=== PATIENT | female | born 1950 | race Caucasian/White ===

== ENCOUNTER 2018-03-31 11:14 | Inpatient (IN) ==
[2018-03-31] MEDS ORDERED: Naloxone 0.4 MG/ML INJ IVP PRN (14:46)
[2018-03-31] MEDS ORDERED: Dextrose Gel 15 GM/37.5 ML TUBE PO PRN ×2 (15:08)
[2018-03-31] MEDS ORDERED: D5% in Water 1,000 ML IVC PRN (15:08)
[2018-03-31] MEDS ORDERED: *HR* Dextrose 50 % in Water (Syg) 50 ML SYRINGE IVP PRN (15:08)
--- NOTE | 2018-03-31 15:42 | Internal Med History&Physical ---
<Vahid Jackson R - Last Filed: 03/31/18 15:36> Date of Encounter: 03/31/18 Time of Encounter: 14:00 Internal Medicine - H&P: HPI Chief complaint: Left knee pain Admitted From: Emergency Dept ([place] [facility]) Plans for Post Hospital Care: Home History of present illness: Ms. Ames is a 67 year old female with a history of CAD, diabetes, hypertension, depression, unprovoked PE on anticoagulation with Coumadin, COPD requiring oxygen at baseline, and chronic anemia. Patient presents from [place] [facility] for evaluation of left knee pain. Patient reports pain for last 5-7 days has briskly worsened, she has been unable to ambulate on her left lower extremity since yesterday. She denies any fever or chills at home denies nausea, vomiting, change in bowel, shortness of breath, or chest pain. Reports the pain was present one morning when she woke up, she denies known trauma or falls. Pain was 10 out of 10 prior to narcotic administration, at time of this evaluations pain is rated 7 out of 10. Initial evaluation did reveal a low- grade fever of 100.4. CBC did not reveal leukocytosis, and anemia present with hemoglobin of 8.1 appears to be patient's baseline. Serum creatinine elevated at 1.4, also appears to be patient's baseline renal function. Serum uric acid was elevated at 13. Left knee radiographs were obtained without acute abnormality or finding. Aspiration was attempted but unsuccessful. Orthopedic surgery was consultation and recommended holding antibiotics, administering colchicine, and transferred to [facility] for further evaluation and management. Past Med Surg Social Fam HX - Past Medical History Medical history: diabetes, hyperlipidemia, renal disease Additional medical history: home . Diabetic neuropathy Psychiatric history: depression - Past Surgical History Surgical History: cholecystectomy, hysterectomy - Social History Smoking Status: Never smoker Smokeless Tobacco Status: No Alcohol use: none Drug use: none Internal Medicine - H&P: Meds Citalopram Hydrobromide [Celexa] 40 mg PO DAILY 01/04/17 [History] Gabapentin [Neurontin] 800 mg PO DAILY 01/04/17 [History] Indapamide [Lozol] 2.5 mg PO DAILY 01/04/17 [History] Meclizine HCl [Verticalm] 25 mg PO AD 01/04/17 [History] Omeprazole [PriLOSEC] 40 mg PO DAILY 01/04/17 [History] Tizanidine HCl [Zanaflex] 4 mg PO TID 01/04/17 [History] Venlafaxine XR (24 HR) [Effexor Xr] 150 mg PO DAILY 01/04/17 [History] Warfarin [Coumadin] 5 mg PO 1800 01/04/17 [History] Cholecalciferol (D-3) [Vitamin D] 5,000 unit PO DAILY 01/19/17 [History] GlipiZIDE [Glipizide Xl] 5 mg PO DAILY 02/22/17 [History] Metoprolol Tartrate [Lopressor] 50 mg PO BID 02/22/17 [History] HYDROcodone/Acet 10/325 mg [[place] 10-325 mg] 1 tab PO BID PRN 03/16/17 [History] Cyanocobalamin (Vitamin B-12) [Vitamin B12] 1,000 mcg PO DAILY #30 tablet 07/05/17 [Rx] Allergy/AdvReac Type Severity Reaction Status Date / Time Penicillins Allergy Rash Verified 07/22/17 13:33 pregabalin [From Lyrica] Allergy Rash Verified 07/22/17 13:33 All Systems PM: A 10-system review of systems was performed and is negative for pertinent findings except as documented above in the HPI. - Constitutional Constitutional: no chills, no fever(s) - EENT Eyes: no change in vision, no diplopia Nose, mouth and throat: no epistaxis, no sore throat - Cardiovascular Cardiovascular ROS IM: no chest pain, no dyspnea, no palpitations - Gastrointestinal Gastrointestinal: no abdominal pain, no change in stool character - Musculoskeletal Musculoskeletal ROS IM: joint swelling, limited range of motion - Integumentary Integumentary IM: erythema (Left knee) - Neurological Neurological ROS: no dizziness, no focal weakness - Psychiatric Psychiatric: depression - Hematologic/Lymphatic Hematologic/Lymphatic: easy bleeding - Constitutional Vitals: Temp Pulse Resp BP Pulse Ox 100.4 F H 107 16 132/69 95 03/31/18 13:28 03/31/18 13:28 03/31/18 13:28 03/31/18 13:28 03/31/18 13:28 Exam: General: Patient is seated upright in bed, visibly uncomfortable, no acute distress, does not appear severely ill HEENT: Atraumatic, pupils PERRLA with EOMI, anicteric sclera, moist mucous membranes Neck: Soft without lymphadenopathy Cardio: Regular rate and rhythm, 2/6 systolic murmur present, previously known to patient Respiratory: Clear to auscultation bilaterally, no crackles or wheezes Abdomen: Obese, soft, nontender, nondistended, no guarding or rigidity Extremities: Left knee effusion with associated erythema and tenderness, mild lower extremity edema Neuro: Alert and oriented to person, place, time, no focal deficits Psych: Blunted affect - Assessment and plan (1) Knee effusion, left Current Visit: Yes Status: Acute Assessment and plan: Left knee effusion with associated erythema and significant tenderness Low-grade fever of 100.4, no leukocytosis Uric acid elevated at 13 INR elevated at 2.4 Arthrocentesis attempted and failed at outside facility Differential includes gout, pseudoarthritis, heme-arthosis, septic arthritis. Plan: Repeat CBC, INR Blood cultures 2 Orthopedic surgery consult to Dr. Mcnulty for possible arthrocentesis with fluid evaluation for Gram stain, culture, microscopy for crystals Pain management Methylprednisolone 20 mg IV twice a day, decrease pending clinical response Feel that septic arthritis is less likely and will hold antibiotic therapy currently pending results of the above. Will monitor closely and initiate abx if patient course changes. (2) Diabetes Current Visit: Yes Status: Acute Assessment and plan: Appears to be well controlled, most recent hemoglobin A1c of 5.6, Hold home glipizide Accu-Cheks and sliding scale insulin, adjust regimen as indicated Qualifiers: Diabetes mellitus type: type 2 Diabetes mellitus jail insulin use: without termite inspector use Diabetes mellitus complication status: with kidney complications Diabetes mellitus complication detail: with chronic kidney disease Chronic kidney disease stage: unspecified stage Qualified Code(s): E11.22 - Type 2 diabetes mellitus with diabetic chronic kidney disease (3) Anemia Current Visit: Yes Status: Acute Assessment and plan: Chronic anemia, likely multifactorial in nature secondary to chronic kidney disease, iron deficiency, and anticoagulation Hemoglobin today 8.1, appears to be at baseline We will follow daily labs Qualifiers: Anemia type: unspecified type Qualified Code(s): D64.9 - Anemia, unspecified (4) History of pulmonary embolus (PE) Current Visit: Yes Status: Acute Assessment and plan: On warfarin for prior unprovoked pulmonary embolus Will hold warfarin for arthrocentesis and resume following procedure (5) Depression Current Visit: Yes Status: Acute Assessment and plan: Continue home medications Qualifiers: Depression Type: major depressive disorder Major depression recurrence: unspecified whether recurrent Active/Remission status: in full remission Qualified Code(s): 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, single episode, in full remission (6) COPD (chronic obstructive pulmonary disease) Current Visit: Yes Status: Acute Assessment and plan: Per patient requires oxygen at baseline, currently on 2 L Supplemental oxygen as necessary to maintain saturation Qualifiers: COPD type: unspecified COPD Qualified Code(s): J44.9 - Chronic obstructive pulmonary disease, unspecified - Time Spent With Patient Total time spent is greater than 50% in coordination of care (as documented) at patient's floor/unit and/or counseling patient: <Maryjane Koroma - Last Filed: 03/31/18 16:49> Date of Encounter: 03/31/18 Internal Medicine - H&P: HPI History of present illness: Ms. Ames is a 67 year old female All Systems PM: A 10-system review of systems was performed and is negative for pertinent findings except as documented above in the HPI. - Constitutional Vitals: Temp Pulse Resp BP Pulse Ox 100.4 F H 107 16 132/69 95 03/31/18 13:28 03/31/18 13:28 03/31/18 13:28 03/31/18 13:28 03/31/18 13:28 Internal Med - H&P Results - Labs CBC & Chem 7: 03/31/18 15:36 Labs: Short CBC 03/31/18 Range/Units 15:36 WBC 4.9 (4.3-11.1) K/mcL Hgb 7.5 L (11.5-15.4) g/dL Hct 24.6 L (35.3-44.9) % Plt Count 135 L (140-400) K/mcL Neutrophils # 4.3 (1.6-8.9) K/mcL - Assessment and plan (1) Knee effusion, left Current Visit: Yes Status: Acute (2) Diabetes Current Visit: Yes Status: Acute Qualifiers: Diabetes mellitus type: type 2 Diabetes mellitus jail insulin use: without jail use Diabetes mellitus complication status: with kidney complications Diabetes mellitus complication detail: with chronic kidney disease Chronic kidney disease stage: unspecified stage Qualified Code(s): E11.22 - Type 2 diabetes mellitus with diabetic chronic kidney disease (3) Anemia Current Visit: Yes Status: Acute Qualifiers: Anemia type: unspecified type Qualified Code(s): D64.9 - Anemia, unspecified (4) History of pulmonary embolus (PE) Current Visit: Yes Status: Acute (5) Depression Current Visit: Yes Status: Acute Qualifiers: Depression Type: major depressive disorder Major depression recurrence: unspecified whether recurrent Active/Remission status: in full remission Qualified Code(s): 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, single episode, in full remission (6) COPD (chronic obstructive pulmonary disease) Current Visit: Yes Status: Acute Qualifiers: COPD type: unspecified COPD Qualified Code(s): J44.9 - Chronic obstructive pulmonary disease, unspecified - Time Spent With Patient Total time spent is greater than 50% in coordination of care (as documented) at patient's floor/unit and/or counseling patient: - Attending Attestation I examined this patient and my medical decision-making was reviewed with the Resident Physician Dr Jackson. I agree with the documented findings, dispo sition and treatment plan as described except to the extent set forth below. Ms Ames has pmhx of multifactorial anemia 2/2 MARYJANE from [place] (internal hemorrhoids) and CKD, Stage III CKD, fatty liver disease, copd on o2 nc at home, unprovoked PE on warfarin and follows with heme. She transferred from [place] for Left knee pain and joint effusion for otho consultation awake, cont left knee pain with any touching of joint or movement of joint. + left calf pain. denies fevers, chills, n/v, recent travel, exposure to wooded areas/tics, recent viral illness or prior infectious diseases such as tb. No trauma or injury. Similar episode same knee in past without dx. gen- alert, awake,appears stated age, obese eyes- pupils equal round , no conjunctival pallor cv- reg rate and rhythm, normal s1,s2, no murmurs appreciated, no pitting edema le lungs- ctabl, no wheezing, rhonchi or crackles, norm resp effort on home o2 nc msk- left knee effusion, faint erythema, pain to palpation joint and pt unable to move joint through rom given pain, no ecchymosis or rash, left calf size appears larger than left but hard to fully eval given her positioning and refusal to move knee neuro- AAOx3 Left knee pain and joint effusion Differential includes gout, dvt, given temp 100.4 cannot rule out septic joint though this is lower of diff at this time given no leukocytosis or systemic symptoms -ortho consulted when at [place] [facility] for colchicine, hold abx and transfer f or tap ortho to tap knee for fluid analysis -hold on steroids given temp here, no abx at this time but if clinical picture changes prior to fluid analysis results will consider initiating, , given co lchicine (got 0.6 mg at osh), renal dose as needed, check gonorrheal urine study -LLE doppler Chronic anemia- appears at baseline 7-8s on recent checks- monitor here, s/p atttempted tap at o[facility], monitor for hemarthrosis hx unprovoked pe- on ac, therapeutic, LLE US as above further diagnoses and plan as noted by resident
[2018-03-31 15:50] LABS: Eosinophils % 0.2 %; Hematocrit 24.6 % (35.3-44.9); Hemoglobin 7.5 g/dL (11.5-15.4); Immature Granulocytes % 0.2 % (0-4); Lymphocytes # 0.3 K/mcL (0.6-4.6); Lymphocytes % 6.7 %; Mean Corpuscular HGB Conc 30.5 g/dL (31.6-35.5); Mean Corpuscular Hemoglobin 29.1 pg (28.0-33.3); Mean Platelet Volume 9.8 fL (9.4-12.4); Monocytes # 0.3 K/mcL (0.0-1.3); Monocytes % 6.1 %; Neutrophils # 4.3 K/mcL (1.6-8.9); Platelet Count 135 K/mcL (140-400); Red Blood Count 2.58 M/mcL (3.82-4.97); Red Cell Distribution Width 16.1 % (11.5-14.5); Segmented Neutrophils % 86.8 %
[2018-03-31] MEDS ORDERED: Ipratropium/Albuterol Neb 3 ML IH PRN (15:56)
[2018-03-31 15:57] LABS: INR 2.5; Prothrombin Time 28.4 Seconds (9.4-12.1)
[2018-03-31 15:59] LABS: Mean Corpuscular Volume 95.3 fL (83.0-100.0)
[2018-03-31] MEDS: *HR* OxyCODONE/APAP 5/325 TABLET PO PRN ×2 (16:10→23:50)
[2018-03-31] MEDS: Insulin LISPRO 300 UNITS/3 ML VIAL SQ SCH ×2 (16:12→21:04)
[2018-03-31] MEDS ORDERED: Colchicine 0.6 MG TABLET PO ONE (16:36)
[2018-03-31] MEDS ORDERED: Gabapentin 400 MG CAPSULE PO SCH (17:00)
[2018-03-31] MEDS: *HR* FentaNYL (PF) 100 MCG/2 ML VIAL IVP PRN ×3 (17:03→21:30)
[2018-03-31] MEDS ORDERED: Lidocaine -MPF 1% 5 ML AMPUL ONE (17:43)
[2018-03-31] MEDS ORDERED: MethylPREDNISolone 40 MG/ML VIAL IVP SCH (18:00)
--- NOTE | 2018-03-31 19:00 | Orthopedic Consult Note ---
Date of Encounter: 03/31/18 Time of Encounter: 18:58 History of Present Illness Chief complaint: Left knee pain and swelling HPI: Ms. Ames is a 67 year old female who developed acute onset of left knee pain and swelling a proximally 5 days ago without any antecedent trauma. Patient states that the knee has become extremely painful even to touch. Should not denies any recent trauma. The patient has had previous episodes of pain in the knee in the past. Patient states that she does have a history of pulmonary embolus with a lug clot in one of her lower extremities, she is on chronic Coumadin anticoagulation. Patient is unable to utilize any anti-inflammatory medications to help with the pain. I have reviewed the patient's completed history and physical data as well as see medical record. Vital signs are stable. The patient does have a recorded temperature of 100.4 degrees. Pertinent orthopedic examination reveals a mild to moderate effusion in the left knee. There is distention of the superficial veins in the left leg both above and below the knee. There is no significant erythema or cellulitic component to the knee. No evidence of prepatellar involvement. Range of motion and exam is extremely limited due to pain. I did review the x-rays obtained in July 2017. These are nonweightbearing x- rays. These do reveal the presence of arthritis but this does not appear to be severe. Reportedly the x-rays taken today are unremarkable. Laboratory data includes a normal WBC count. Hemoglobin is chronically low at 7.5. Platelet count is low at 135. Pro time is 28.4 with an INR of 2.5. Patient reportedly has been elevated serum uric acid level. Impression: Left knee effusion, suspected gout Recommendation: After extensive discussion with the patient, informed consent was obtained to proceed with an arthrocentesis of the knee. Utilizing approximately 3 mL's of 1% lidocaine and sterile technique a superolateral approach was used to obtain approximately 30 mL of bloodstained, thick synovial fluid. After the fluid sat for a short period of time precipitation of material was noted. This is consistent with uric acid orders pyrophosphate crystals. Compression dressing was applied. The patient tolerated the procedure without difficulty. The arthrocentesis fluid was sent for culture, cell count, crystal analysis as well as cytology. Discussed with the patient that should she have any pain over the next 24-48 hours and ice would be appropriate treatment. We will follow-up and make further recommendations pending the results of this arthrocentesis. Thank you very much for allowing me to see care for Mrs. Ames. Sincerely, Surya Mcnulty,DO Past Med Surg Social Fam HX - Past Medical History Medical history: diabetes, hyperlipidemia, renal disease Additional medical history: home . Diabetic neuropathy Psychiatric history: depression - Past Surgical History Surgical History: cholecystectomy, hysterectomy - Social History Smoking Status: Never smoker Smokeless Tobacco Status: No Alcohol use: none Drug use: none Medications and Allergies Citalopram Hydrobromide [Celexa] 40 mg PO DAILY 01/04/17 [History] Gabapentin [Neurontin] 800 mg PO DAILY 01/04/17 [History] Indapamide [Lozol] 2.5 mg PO DAILY 01/04/17 [History] Meclizine HCl [Verticalm] 25 mg PO AD 01/04/17 [History] Omeprazole [PriLOSEC] 40 mg PO DAILY 01/04/17 [History] Tizanidine HCl [Zanaflex] 4 mg PO TID 01/04/17 [History] Venlafaxine XR (24 HR) [Effexor Xr] 150 mg PO DAILY 01/04/17 [History] Warfarin [Coumadin] 5 mg PO 1800 01/04/17 [History] Cholecalciferol (D-3) [Vitamin D] 5,000 unit PO DAILY 01/19/17 [History] GlipiZIDE [Glipizide Xl] 5 mg PO DAILY 02/22/17 [History] Metoprolol Tartrate [Lopressor] 50 mg PO BID 02/22/17 [History] HYDROcodone/Acet 10/325 mg [[place] 10-325 mg] 1 tab PO BID PRN 03/16/17 [History] Cyanocobalamin (Vitamin B-12) [Vitamin B12] 1,000 mcg PO DAILY #30 tablet 07/05/17 [Rx] Allergy/AdvReac Type Severity Reaction Status Date / Time Penicillins Allergy Rash Verified 07/22/17 13:33 pregabalin [From Lyrica] Allergy Rash Verified 07/22/17 13:33 All Systems Reviewed: The remainder of the systems were reviewed and are negative Physical Exam - Constitutional Vitals: Temp Pulse Resp BP Pulse Ox 100.4 F H 107 16 132/69 95 03/31/18 13:28 03/31/18 13:28 03/31/18 13:28 03/31/18 13:28 03/31/18 13:28 Results - Labs Result Diagrams: 03/31/18 15:36 Labs: Abnormal lab results RBC 2.58 M/mcL (3.82-4.97) L 03/31/18 15:36 Hgb 7.5 g/dL (11.5-15.4) L 03/31/18 15:36 Hct 24.6 % (35.3-44.9) L 03/31/18 15:36 MCHC 30.5 g/dL (31.6-35.5) L 03/31/18 15:36 RDW 16.1 % (11.5-14.5) H 03/31/18 15:36 Plt Count 135 K/mcL (140-400) L 03/31/18 15:36 Lymphocytes # 0.3 K/mcL (0.6-4.6) L 03/31/18 15:36 PT 28.4 Seconds (9.4-12.1) H 03/31/18 15:36 H & H 03/31/18 Range/Units 15:36 Hgb 7.5 L (11.5-15.4) g/dL Hct 24.6 L (35.3-44.9) % All other labs normal. - Diagnostic results Knee x-ray: report reviewed, image reviewed Consult Discharge Plan - Plan Referrals: Chintan Cooper MD [Primary Care Provider] -
[2018-03-31 19:53] LABS: Source,Synovial Fluid LEFT KNEE ASPIRATE
[2018-03-31] MEDS ORDERED: tiZANidine 4 MG TABLET PO ONE (20:17)
[2018-03-31 20:24] LABS: Appearance,Synovial Fluid Cloudy (Clear-Hazy); Color,Synovial Fluid Red (Straw)
[2018-03-31] MEDS: Gabapentin 400 MG CAPSULE PO SCH (20:58)
[2018-04-01] MEDS: *HR* FentaNYL (PF) 100 MCG/2 ML VIAL IVP PRN ×7 (00:58→09:57)
[2018-04-01 05:00] LABS: Basophils % 0.3 %; Eosinophils % 0.3 %; Hematocrit 23.6 % (35.3-44.9); Hemoglobin 7.1 g/dL (11.5-15.4); Immature Granulocytes % 0.5 % (0-4); Lymphocytes # 0.4 K/mcL (0.6-4.6); Lymphocytes % 10.5 %; Mean Corpuscular HGB Conc 30.1 g/dL (31.6-35.5); Mean Corpuscular Hemoglobin 29.1 pg (28.0-33.3); Mean Corpuscular Volume 96.7 fL (83.0-100.0); Monocytes # 0.3 K/mcL (0.0-1.3); Monocytes % 6.6 %; Neutrophils # 3.1 K/mcL (1.6-8.9); Platelet Count 127 K/mcL (140-400); Red Blood Count 2.44 M/mcL (3.82-4.97); Red Cell Distribution Width 15.9 % (11.5-14.5); Segmented Neutrophils % 81.8 %
[2018-04-01 05:06] LABS: INR 2.5; Prothrombin Time 27.9 Seconds (9.4-12.1)
[2018-04-01 05:18] LABS: Calcium 8.9 mg/dL (8.6-10.3); Potassium 3.7 mEq/L (3.5-5.1)
[2018-04-01] MEDS: Insulin LISPRO 300 UNITS/3 ML VIAL SQ SCH ×4 (07:27→21:28)
[2018-04-01] MEDS: Venlafaxine XR (24 HR) 150 MG CAP.ER.24H PO SCH (07:29)
[2018-04-01] MEDS: Gabapentin 400 MG CAPSULE PO SCH ×3 (07:30→19:28)
--- NOTE | 2018-04-01 08:11 | Internal Med Progress Note ---
<Maryjane Koroma - Last Filed: 04/01/18 13:40> Hospitalist Progress Note - Encounter Date of Encounter: 04/01/18 - Exam Vitals: Temp Pulse Resp BP Pulse Ox 99.3 F 68 15 109/51 99 04/01/18 10:55 04/01/18 10:55 04/01/18 10:55 04/01/18 10:55 04/01/18 10:55 - Assessment and Plan (1) Knee effusion, left Current Visit: Yes Status: Acute (2) Diabetes Current Visit: Yes Status: Acute (3) Anemia Current Visit: Yes Status: Acute (4) History of pulmonary embolus (PE) Current Visit: Yes Status: Acute (5) Depression Current Visit: Yes Status: Acute (6) COPD (chronic obstructive pulmonary disease) Current Visit: Yes Status: Acute - Time Spent with Patient Total time spent is greater than 50% in coordination of care (as documented) at patient's floor/unit and/or counseling patient: Internal Medicine: Result - Labs CBC & Chem 7: 04/01/18 04:29 04/01/18 04:29 Labs: Short CBC 03/31/18 04/01/18 Range/Units 15:36 04:29 WBC 4.9 3.8 L (4.3-11.1) K/mcL Hgb 7.5 L 7.1 L (11.5-15.4) g/dL Hct 24.6 L 23.6 L (35.3-44.9) % Plt Count 135 L 127 L (140-400) K/mcL Neutrophils # 4.3 3.1 (1.6-8.9) K/mcL BMP 04/01/18 04:29 Sodium 138 Potassium 3.7 Chloride 98 Carbon Dioxide 34 H BUN 26 H Creatinine 1.56 H Glucose 152 H Calcium 8.9 - ABG Interpretation ABG results: PT/INR, D-dimer PT 27.9 Seconds (9.4-12.1) H 04/01/18 04:29 Consult Discharge Plan - Plan Referrals: Chintan Cooper MD [Primary Care Provider] - - Attending Attestation I examined this patient and my medical decision-making was reviewed with the Resident Physician Dr Jolly. I agree with the documented findings, disposition and treatment plan as described except to the extent set forth below. Ms Ames has pmhx of multifactorial anemia 2/2 MARYJANE from gib (internal hemorrhoids) and CKD, Stage III CKD, fatty liver disease, copd on o2 nc at home, unprovoked PE on warfarin and follows with heme. She transferred from [place] for Left knee pain and joint effusion for otho consultation awake, cont left knee pain unchanged, though she is resting comofrtably with pain meds administered at this time. denies fevers, chills, nasuea or emesis. rom remains greatly impaired in that joint. fluid analysis and ortho note discussed with her. agreeable to pt ot assessment gen- alert, awake,appears stated age, obese eyes- pupils equal round , no conjunctival pallor cv- reg rate and rhythm, normal s1,s2, no murmurs appreciated, no pitting edema le lungs- ctabl, no wheezing, rhonchi or crackles, norm resp effort on home o2 nc msk- left knee effusion, pain to palpation joint and pt unable to move joint through rom given pain, n neuro- AAOx3 Left knee pain and joint effusion suspected gout, dvt ruled out, cannot rule out septic joint given fluid analysis not complete results though this is lower of diff at this time given no leukocytosis or systemic symptoms and no fever -ortho suspects gout, will await fu or fluid analysis as not fully able to be run -s/p cochincine -prn pain control -LLE doppler prelim no clot fu ortho recs change to po pain meds pt/ot Chronic anemia- appears at baseline 7-8s monitor as needed hx unprovoked pe- on ac, therapeutic, LLE US as above further diagnoses and plan as noted by resident <Sim Jolly - Last Filed: 04/01/18 14:46> Hospitalist Progress Note - Encounter Date of Encounter: 04/01/18 Time of Encounter: 08:11 - Subjective Interval History: Ms. Ames states she is still having quite a bit of left knee pain. I informed her that we were giving her an appropriate amount of pain medication without being unsafe, she stated she understood and agreed. I informed her that the results of her knee aspiration or pulmonary and that the orthopedics team would be better equipped to interpret those results and inform her of the plan of care. However no that in the meantime we would manage her medically. I informed her that as of this morning there were no signs of systemic infection and that her labs and vitals were stable. She pleasantly accepted this explanation - Exam Vitals: Temp Pulse Resp BP Pulse Ox 99.5 F 82 15 110/58 97 04/01/18 07:07 04/01/18 07:07 04/01/18 07:07 04/01/18 07:07 04/01/18 07:07 Exam: General: Patient is seated upright in bed, visibly uncomfortable, no acute distress, does not appear severely ill HEENT: Atraumatic, pupils PERRLA with EOMI, anicteric sclera, moist mucous membranes Neck: Soft without lymphadenopathy Cardio: Regular rate and rhythm, 2/6 systolic murmur present, previously known to patient Respiratory: Clear to auscultation bilaterally, no crackles or wheezes Abdomen: Obese, soft, nontender, nondistended, no guarding or rigidity Extremities: Left knee in bre wrap, no swelling or erythema noted above or below, sensation diminished in bilateral distal lower extremities secondary to neuropathy, motor and pulses intact in both lower extremities Neuro: Alert and oriented to person, place, time, no focal deficits Psych: Blunted affect - Assessment and Plan (1) Knee effusion, left Current Visit: Yes Status: Acute Assessment and Plan: Patient presented for left knee effusion with associated erythema and significant tenderness Labs and vitals on admission significant for low-grade fever, elevated uric acid White blood cell count within normal limits, no other criteria for sepsis Arthrocentesis attempted and failed at outside facility Differential includes gout, pseudoarthritis, heme-arthosis, septic arthritis. White count remains within normal limits, blood cultures pending Orthopedic surgery performed arthrocentesis yesterday, results pending interpretation Plan: Continue pain control Continue to monitor labs and vitals for signs of systemic infection Rest of plan pending orthopedic recommendations (2) Diabetes Current Visit: Yes Status: Chronic Assessment and Plan: Appears to be well controlled, most recent hemoglobin A1c of 5.6, Hold home glipizide Accu-Cheks and sliding scale insulin, adjust regimen as indicated Glucose stable this morning at 152 (3) Anemia Current Visit: Yes Status: Chronic Assessment and Plan: Chronic anemia, likely multifactorial in nature secondary to chronic kidney disease, iron deficiency, and anticoagulation Hemoglobin yesterday 7.5, 7.1 today, appears to be at approximate baseline We will monitor CBC daily and watch for any signs of bleeding (4) History of pulmonary embolus (PE) Current Visit: Yes Status: Chronic Assessment and Plan: On warfarin for prior unprovoked pulmonary embolus Warfarin held for arthrocentesis, resume today (5) Depression Current Visit: No Status: Chronic Assessment and Plan: Continue home medications (6) COPD (chronic obstructive pulmonary disease) Current Visit: No Status: Chronic Assessment and Plan: Per patient requires oxygen at baseline, currently on 2 L Supplemental oxygen as necessary to maintain saturation DuoNeb's every 6 hours as needed DVT Prophylaxis: Patient on warfarin - Time Spent with Patient Total time spent is greater than 50% in coordination of care (as documented) at patient's floor/unit and/or counseling patient: Internal Medicine: Result - Labs CBC & Chem 7: 04/01/18 04:29 04/01/18 04:29 Labs: Short CBC 03/31/18 04/01/18 Range/Units 15:36 04:29 WBC 4.9 3.8 L (4.3-11.1) K/mcL Hgb 7.5 L 7.1 L (11.5-15.4) g/dL Hct 24.6 L 23.6 L (35.3-44.9) % Plt Count 135 L 127 L (140-400) K/mcL Neutrophils # 4.3 3.1 (1.6-8.9) K/mcL BMP 04/01/18 04:29 Sodium 138 Potassium 3.7 Chloride 98 Carbon Dioxide 34 H BUN 26 H Creatinine 1.56 H Glucose 152 H Calcium 8.9 - ABG Interpretation ABG results: PT/INR, D-dimer PT 27.9 Seconds (9.4-12.1) H 04/01/18 04:29 <Maryjane Koroma - Last Filed: 04/01/18 13:40> (2) Diabetes Qualifiers: Diabetes mellitus type: type 2 Diabetes mellitus terminal worker insulin use: without terminal worker use Diabetes mellitus complication status: with kidney complications Diabetes mellitus complication detail: with chronic kidney disease Chronic kidney disease stage: unspecified stage Qualified Code(s): E11.22 - Type 2 diabetes mellitus with diabetic chronic kidney disease (3) Anemia Qualifiers: Anemia type: unspecified type Qualified Code(s): D64.9 - Anemia, unspecified (5) Depression Qualifiers: Depression Type: major depressive disorder Major depression recurrence: unspecified whether recurrent Active/Remission status: in full remission Qualified Code(s): 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, single episode, in full remission (6) COPD (chronic obstructive pulmonary disease) Qualifiers: COPD type: unspecified COPD Qualified Code(s): J44.9 - Chronic obstructive pulmonary disease, unspecified <Sim Jolly - Last Filed: 04/01/18 14:46> (2) Diabetes Qualifiers: Diabetes mellitus type: type 2 Diabetes mellitus correction insulin use: without correction use Diabetes mellitus complication status: with kidney complications Diabetes mellitus complication detail: with chronic kidney disease Chronic kidney disease stage: unspecified stage Qualified Code(s): E11.22 - Type 2 diabetes mellitus with diabetic chronic kidney disease (3) Anemia Qualifiers: Anemia type: unspecified type Qualified Code(s): D64.9 - Anemia, unspecified (5) Depression Qualifiers: Depression Type: major depressive disorder Major depression recurrence: unspecified whether recurrent Active/Remission status: in full remission Qualified Code(s): 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, single episode, in full remission (6) COPD (chronic obstructive pulmonary disease) Qualifiers: COPD type: unspecified COPD Qualified Code(s): J44.9 - Chronic obstructive pulmonary disease, unspecified
[2018-04-01] MEDS: *HR* OxyCODONE/APAP 5/325 TABLET PO PRN ×2 (11:35→17:24)
[2018-04-01] MEDS ORDERED: Docusate Oral Soln 100 MG/10 ML UDC PO SCH (12:30)
[2018-04-01] MEDS: *HR* HYDROcodone/Acet 10/325 mg TABLET PO PRN (14:38)
[2018-04-01] MEDS: *HR* Warfarin 5 MG TABLET PO SCH (17:24)
[2018-04-01] MEDS: Acetaminophen 325 MG TABLET PO PRN (19:28)
[2018-04-02] MEDS: *HR* OxyCODONE/APAP 5/325 TABLET PO PRN ×3 (02:31→14:14)
[2018-04-02] MEDS ORDERED: tiZANidine 4 MG TABLET PO ONE (02:39)
[2018-04-02 03:40] LABS: Eosinophils % 1.2 %; Hematocrit 24.9 % (35.3-44.9); Hemoglobin 7.4 g/dL (11.5-15.4); Immature Granulocytes % 0.3 % (0-4); Lymphocytes # 0.3 K/mcL (0.6-4.6); Lymphocytes % 9.1 %; Mean Corpuscular HGB Conc 29.7 g/dL (31.6-35.5); Mean Corpuscular Hemoglobin 28.9 pg (28.0-33.3); Mean Corpuscular Volume 97.3 fL (83.0-100.0); Mean Platelet Volume 9.7 fL (9.4-12.4); Monocytes # 0.2 K/mcL (0.0-1.3); Monocytes % 5.3 %; Neutrophils # 2.9 K/mcL (1.6-8.9); Platelet Count 127 K/mcL (140-400); Red Blood Count 2.56 M/mcL (3.82-4.97); Red Cell Distribution Width 15.8 % (11.5-14.5); Segmented Neutrophils % 84.1 %
[2018-04-02 03:45] LABS: INR 1.9; Prothrombin Time 21.3 Seconds (9.4-12.1)
[2018-04-02] MEDS: *HR* HYDROcodone/Acet 10/325 mg TABLET PO PRN ×2 (05:47→11:40)
[2018-04-02] MEDS: Venlafaxine XR (24 HR) 150 MG CAP.ER.24H PO SCH (07:30)
[2018-04-02] MEDS: Acetaminophen 325 MG TABLET PO PRN (07:30)
[2018-04-02] MEDS: Gabapentin 400 MG CAPSULE PO SCH ×3 (07:31→21:02)
[2018-04-02] MEDS: Insulin LISPRO 300 UNITS/3 ML VIAL SQ SCH ×4 (07:52→21:02)
--- NOTE | 2018-04-02 09:48 | Internal Med Progress Note ---
<Tunde Gardner - Last Filed: 04/02/18 09:44> Hospitalist Progress Note - Encounter Date of Encounter: 04/02/18 Time of Encounter: 09:54 - Subjective Interval History: No acute events overnight. Patient reports she continues to have pain in her left knee. She is unable to properly extend or flex her left knee. She is t olerating her diet and denies chest pain, shortness of breath, abdominal pain. She reports that if physical therapy and occupational therapy recommended a splint for rehabilitation and she would be okay with that. - Exam Vitals: Temp Pulse Resp BP Pulse Ox 98.8 F 67 18 95/61 97 04/02/18 04:38 04/02/18 04:38 04/02/18 04:38 04/02/18 04:38 04/02/18 08:37 Exam: General: pleasant, without distress Cardiovascualr: Regular rate and rhythm with no murmur, absent gallops or rubs, absent pedal edema, radial pulses 2 out of 4 Lungs: Clear to auscultation bilaterally, not in respiratory distress Abdomen: Soft nontender, nondistended positive bowel sounds, absent hepatomegaly Skin: warm and dry, absent rash, absent open wounds and nodules MSK: absent clubbing, cyanosis, left knee swollen, warm to touch. Patient unable to extend or flex secondary to pain. And there is tenderness with deep palpation of the patellar circumference. Neuro: Cranial nerves II through XII intact, UE and LE sensation equal bilaterally Psych: good insight and judgment - Assessment and Plan (1) Knee effusion, left Current Visit: Yes Status: Acute Assessment and Plan: Knee aspiration is negative for infection as well as no crystals were seen Spoke with orthopedic surgery who would like to do a steroid injection today and patient may follow-up in office if her knee pain and swelling does not improve. Patient has been afebrile, and blood cultures have been negative so far There were no bacteria observed in synovial fluid aspiration. Plan: PT/OT, continue pain control. Discharge planning. (2) Diabetes Current Visit: Yes Status: Chronic Assessment and Plan: Appears to be well controlled, most recent hemoglobin A1c of 5.6, Hold home glipizide Accu-Cheks and sliding scale insulin, adjust regimen as indicated (3) Anemia Current Visit: Yes Status: Chronic Assessment and Plan: Chronic anemia, likely multifactorial in nature secondary to chronic kidney disease, iron deficiency, and anticoagulation Hemoglobin stable We will monitor CBC daily and watch for any signs of bleeding (4) History of pulmonary embolus (PE) Current Visit: Yes Status: Chronic Assessment and Plan: On warfarin for prior unprovoked pulmonary embolus Continue warfarin (5) Depression Current Visit: Yes Status: Chronic Assessment and Plan: Continue home medications (6) COPD (chronic obstructive pulmonary disease) Current Visit: Yes Status: Chronic Assessment and Plan: Per patient requires oxygen at baseline, currently on 2 L Supplemental oxygen as necessary to maintain saturation DuoNeb's every 6 hours as needed (7) GERD (gastroesophageal reflux disease) Current Visit: Yes Status: Chronic Assessment and Plan: Controlled Continue omeprazole (8) History of anxiety Current Visit: Yes Status: Chronic Assessment and Plan: Controlled Continue venlafaxine - Time Spent with Patient Total time spent is greater than 50% in coordination of care (as documented) at patient's floor/unit and/or counseling patient: Internal Medicine: Result - Labs CBC & Chem 7: 04/02/18 03:13 04/01/18 04:29 Labs: Short CBC 04/02/18 Range/Units 03:13 WBC 3.4 L (4.3-11.1) K/mcL Hgb 7.4 L (11.5-15.4) g/dL Hct 24.9 L (35.3-44.9) % Plt Count 127 L (140-400) K/mcL Neutrophils # 2.9 (1.6-8.9) K/mcL - ABG Interpretation ABG results: PT/INR, D-dimer PT 21.3 Seconds (9.4-12.1) H 04/02/18 03:13 Consult Discharge Plan - Plan Referrals: Chintan Cooper MD [Primary Care Provider] - <Maryjane Koroma - Last Filed: 04/02/18 14:55> Hospitalist Progress Note - Encounter Date of Encounter: 04/02/18 - Exam Vitals: Temp Pulse Resp BP Pulse Ox 98.3 F 65 16 103/61 96 04/02/18 10:57 04/02/18 10:57 04/02/18 10:57 04/02/18 10:57 04/02/18 10:57 - Assessment and Plan (1) Knee effusion, left Current Visit: Yes Status: Acute (2) Diabetes Current Visit: Yes Status: Chronic (3) Anemia Current Visit: Yes Status: Chronic (4) History of pulmonary embolus (PE) Current Visit: Yes Status: Chronic (5) Depression Current Visit: Yes Status: Chronic (6) COPD (chronic obstructive pulmonary disease) Current Visit: Yes Status: Chronic (7) GERD (gastroesophageal reflux disease) Current Visit: Yes Status: Chronic (8) History of anxiety Current Visit: Yes Status: Chronic - Time Spent with Patient Total time spent is greater than 50% in coordination of care (as documented) at patient's floor/unit and/or counseling patient: Internal Medicine: Result - Labs CBC & Chem 7: 04/02/18 03:13 04/01/18 04:29 Labs: Short CBC 04/02/18 Range/Units 03:13 WBC 3.4 L (4.3-11.1) K/mcL Hgb 7.4 L (11.5-15.4) g/dL Hct 24.9 L (35.3-44.9) % Plt Count 127 L (140-400) K/mcL Neutrophils # 2.9 (1.6-8.9) K/mcL - ABG Interpretation ABG results: PT/INR, D-dimer PT 21.3 Seconds (9.4-12.1) H 04/02/18 03:13 - Attending Attestation I examined this patient and my medical decision-making was reviewed with the Resident Physician Dr Gardner. I agree with the documented findings, disposition and treatment plan as described except to the extent set forth below. Ms Ames has pmhx of multifactorial anemia 2/2 MARYJANE from gib (internal hemorrhoids) and CKD, Stage III CKD, fatty liver disease, copd on o2 nc at home, unprovoked PE on warfarin and follows with heme. She transferred from [place] for Left knee pain and joint effusion for ortho consultation awake, left knee pain slowly improving, can now move hip and foot without pain and swelling decreasing, still not ambulating routinely. no fevers, chills, n/v. gen- alert, awake,appears stated age, obese cv- reg rate and rhythm, normal s1,s2, no murmurs appreciated, no pitting edema le lungs- ctabl, no wheezing, rhonchi or crackles, norm resp effort on home o2 nc msk- left knee effusion, cannot preform knee rom but increased rom entire extremity neuro- AAOx3 Left knee pain and joint effusion 2/2 OA No infection identified, no crystals on fluid analysis -ortho rec for steroid injection and outpt fu, will dc colchicine -prn pain control pt/ot evals pending and will determine dispo Chronic anemia- appears at baseline 7-8s monitor as needed hx unprovoked pe- on ac, INR 1.9, repeat level, if less than 2 will bridge with a dose of lovenox and await am inr check further diagnoses and plan as noted by resident <Tunde Gardner - Last Filed: 04/02/18 09:44> (2) Diabetes Qualifiers: Diabetes mellitus type: type 2 Diabetes mellitus long chain beamer insulin use: without senior living use Diabetes mellitus complication status: with kidney complications Diabetes mellitus complication detail: with chronic kidney disease Chronic kidney disease stage: unspecified stage Qualified Code(s): E11.22 - Type 2 diabetes mellitus with diabetic chronic kidney disease (3) Anemia Qualifiers: Anemia type: unspecified type Qualified Code(s): D64.9 - Anemia, unspecified (5) Depression Qualifiers: Depression Type: major depressive disorder Major depression recurrence: unspecified whether recurrent Active/Remission status: in full remission Qualified Code(s): 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 <Maryjane Koroma - Last Filed: 04/02/18 14:55> (2) Diabetes Qualifiers: Diabetes mellitus type: type 2 Diabetes mellitus senior living insulin use: without long chain beamer use Diabetes mellitus complication status: with kidney complications Diabetes mellitus complication detail: with chronic kidney disease Chronic kidney disease stage: unspecified stage Qualified Code(s): E11.22 - Type 2 diabetes mellitus with diabetic chronic kidney disease (3) Anemia Qualifiers: Anemia type: unspecified type Qualified Code(s): D64.9 - Anemia, unspecified (5) Depression Qualifiers: Depression Type: major depressive disorder Major depression recurrence: unspecified whether recurrent Active/Remission status: in full remission Qualified Code(s): 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
[2018-04-02] MEDS ORDERED: Dexamethasone 4 MG/ML VIAL INTRAART ONE (09:54)
[2018-04-02] MEDS ORDERED: MethylPREDNISolone Acet(DEPOT) 80 MG/ML VIAL IM ONE (09:54)
[2018-04-02] MEDS: tiZANidine 4 MG TABLET PO PRN ×2 (10:18→21:08)
--- NOTE | 2018-04-02 11:59 | Orthopedics Progress Note ---
Date of Encounter: 04/02/18 Time of Encounter: 11:56 Subjective Principal diagnosis: Left knee effusion Interval history: 04/02/2018. Patient states the knee is feeling a little bit better. Vital signs are stable. Patient is afebrile. Knee is much improved with much less swelling. Minimal effusion. Knee aspirate is negative for infection. No crystals were seen in the analysis. Impression: Left knee pain secondary to osteoarthritis, probable internal derangement. No evidence of septic process Treatment: Verbal consent obtained from patient to proceed with an intra- articular corticosteroid injection. This was administered without difficulty. Instructed the patient on range of motion exercises also discussed the unknown length of duration of relief should the injection gave her marked pain relief. Discussed that the patient can follow-up with me as needed after discharge. Objective Vital signs: Vital Signs Temp Pulse Resp BP Pulse Ox 04/02/18 10:57 98.3 F 65 16 103/61 96 04/02/18 08:37 97 04/02/18 04:38 98.8 F 67 18 95/61 96 04/01/18 20:48 98.8 F 81 18 100/61 96 04/01/18 16:16 98.5 F 71 15 106/56 97 Intake and Output 04/01/18 04/02/18 04/02/18 23:59 07:59 15:59 Intake Total 600 / 600 240 / 240 240 / 240 Output Total 100 / 100 0 / 0 Balance 500 / 500 240 / 240 240 / 240 Intake: Oral 600 / 600 240 / 240 240 / 240 Output: Urine 100 / 100 0 / 0 Other: Meal Dinner clears Percent of Meal Consumed 80% # Voids 1 # Urine Diapers 1 # Bowel Movements 0 0 Weight 121.5 kg Blood Glucose* 198 198 199 Patient Weight 04/02/18 23:59 Weight 121.5 kg - Labs CBC & BMP: 04/02/18 03:13 04/01/18 04:29 Labs: Abnormal lab results WBC 3.4 K/mcL (4.3-11.1) L 04/02/18 03:13 RBC 2.56 M/mcL (3.82-4.97) L 04/02/18 03:13 Hgb 7.4 g/dL (11.5-15.4) L 04/02/18 03:13 Hct 24.9 % (35.3-44.9) L 04/02/18 03:13 MCHC 29.7 g/dL (31.6-35.5) L 04/02/18 03:13 RDW 15.8 % (11.5-14.5) H 04/02/18 03:13 Plt Count 127 K/mcL (140-400) L 04/02/18 03:13 Lymphocytes # 0.3 K/mcL (0.6-4.6) L 04/02/18 03:13 PT 21.3 Seconds (9.4-12.1) H 04/02/18 03:13 Carbon Dioxide 34 mEq/L (23-29) H 04/01/18 04:29 BUN 26 mg/dL (8-23) H 04/01/18 04:29 Creatinine 1.56 mg/dL (0.60-1.20) H 04/01/18 04:29 Est GFR ( Amer) 40 (> 60) L 04/01/18 04:29 Est GFR (Non-Af Amer) 33 (> 60) L 04/01/18 04:29 Glucose 152 mg/dL (70-105) H 04/01/18 04:29 POC Glucose 198 mg/dL (70-99) H 04/01/18 20:55 Synovial Appearance Cloudy (Clear-Hazy) A 03/31/18 18:50 Consult Discharge Plan - Plan Referrals: Chintan Cooper MD [Primary Care Provider] -
--- NOTE | 2018-04-02 12:02 | Operative Note ---
Date of procedure: 04/02/18 Pre-op diagnosis: Left knee pain Post-op diagnosis: same Procedure: Arthrocentesis with intra-articular steroid injection left knee Anesthesia: none Surgeon: Surya Mcnulty Was there an wellness assistant present: No Estimated blood loss (cc): 1 Specimen: None Condition: stable Disposition: no change Procedure in Detail: Informed consent was in pain from the patient. The skin in the inferolateral aspect of the knee was prepped with alcohol. Utilizing the anterolateral approach the knee was entered with a 22-gauge needle and instilled with a mixture of 5 mL of 0.5% Marcaine, 80 mg of Depo-Medrol and 8 mg of Decadron. Needle was withdrawn. Pressure was held on the puncture site. Band-Aid was applied. Patient was instructed to utilize the knee and to move the knee to mobilize the injection contents. Patient tolerated procedure without difficulty.
[2018-04-02] MEDS ORDERED: Colchicine 0.6 MG TABLET PO SCH (12:30)
[2018-04-02 16:00] LABS: INR 1.7; Prothrombin Time 19.5 Seconds (9.4-12.1)
[2018-04-02] MEDS ORDERED: *HR* Enoxaparin 120 MG/0.8 ML SYRINGE SQ ONE (16:19)
[2018-04-02] MEDS: *HR* Warfarin 5 MG TABLET PO SCH (17:00)
[2018-04-03] MEDS: *HR* HYDROcodone/Acet 10/325 mg TABLET PO PRN ×3 (02:09→20:58)
[2018-04-03] MEDS: *HR* OxyCODONE/APAP 5/325 TABLET PO PRN ×2 (05:17→16:53)
[2018-04-03 07:45] LABS: Hematocrit 23.6 % (35.3-44.9); Hemoglobin 7.1 g/dL (11.5-15.4); Immature Granulocytes % 0.5 % (0-4); Lymphocytes # 0.2 K/mcL (0.6-4.6); Mean Corpuscular HGB Conc 30.1 g/dL (31.6-35.5); Mean Corpuscular Hemoglobin 29.1 pg (28.0-33.3); Mean Corpuscular Volume 96.7 fL (83.0-100.0); Mean Platelet Volume 10.5 fL (9.4-12.4); Monocytes # 0.1 K/mcL (0.0-1.3); Monocytes % 3.5 %; Neutrophils # 1.7 K/mcL (1.6-8.9); Platelet Count 127 K/mcL (140-400); Red Blood Count 2.44 M/mcL (3.82-4.97); Red Cell Distribution Width 15.3 % (11.5-14.5)
[2018-04-03 07:51] LABS: INR 1.9; Prothrombin Time 21.4 Seconds (9.4-12.1)
[2018-04-03 08:02] LABS: Calcium 9.2 mg/dL (8.6-10.3); Potassium 4.6 mEq/L (3.5-5.1)
[2018-04-03] MEDS: Gabapentin 400 MG CAPSULE PO SCH ×3 (08:29→20:57)
[2018-04-03] MEDS: Venlafaxine XR (24 HR) 150 MG CAP.ER.24H PO SCH (08:29)
[2018-04-03] MEDS: Insulin LISPRO 300 UNITS/3 ML VIAL SQ SCH ×4 (08:30→21:51)
--- NOTE | 2018-04-03 12:41 | Internal Med Progress Note ---
<Maryjane Koroma - Last Filed: 04/03/18 14:08> Hospitalist Progress Note - Encounter Date of Encounter: 04/03/18 - Exam Vitals: Temp Pulse Resp BP Pulse Ox 97.9 F 63 16 115/61 98 04/03/18 11:19 04/03/18 11:19 04/03/18 11:19 04/03/18 11:19 04/03/18 11:19 - Assessment and Plan (1) Knee effusion, left Current Visit: Yes Status: Acute (2) Diabetes Current Visit: Yes Status: Chronic (3) Anemia Current Visit: Yes Status: Chronic (4) History of pulmonary embolus (PE) Current Visit: Yes Status: Chronic (5) Depression Current Visit: Yes Status: Chronic (6) COPD (chronic obstructive pulmonary disease) Current Visit: Yes Status: Chronic (7) GERD (gastroesophageal reflux disease) Current Visit: Yes Status: Chronic (8) History of anxiety Current Visit: Yes Status: Chronic - Time Spent with Patient Total time spent is greater than 50% in coordination of care (as documented) at patient's floor/unit and/or counseling patient: Internal Medicine: Result - Labs CBC & Chem 7: 04/03/18 07:07 04/03/18 07:07 Labs: Short CBC 04/03/18 Range/Units 07:07 WBC 2.0 L (4.3-11.1) K/mcL Hgb 7.1 L (11.5-15.4) g/dL Hct 23.6 L (35.3-44.9) % Plt Count 127 L (140-400) K/mcL Neutrophils # 1.7 (1.6-8.9) K/mcL BMP 04/03/18 07:07 Sodium 138 Potassium 4.6 Chloride 99 Carbon Dioxide 32 H BUN 47 H Creatinine 1.51 H Glucose 231 H Calcium 9.2 - ABG Interpretation ABG results: PT/INR, D-dimer PT 21.4 Seconds (9.4-12.1) H 04/03/18 07:07 Consult Discharge Plan - Plan Referrals: Chintan Cooper MD [Primary Care Provider] - - Attending Attestation I examined this patient and my medical decision-making was reviewed with the Resident Physician Dr Jackson. I agree with the documented findings, disposit ion and treatment plan as described except to the extent set forth below. Ms Ames has pmhx of multifactorial anemia 2/2 MARYJANE from gib (internal hemorrhoids) and CKD, Stage III CKD, fatty liver disease, copd on o2 nc at home, unprovoked PE on warfarin and follows with heme. She transferred from [place] for Left knee pain and joint effusion for ortho consultation awake, left knee pain continues to improve, still gretaly limited ambulation no fevers, chills, n/v. gen- alert, awake,appears stated age, obese cv- reg rate and rhythm, normal s1,s2, no murmurs appreciated, no pitting edema le lungs- ctabl, no wheezing, rhonchi or crackles, norm resp effort on home o2 nc msk- left knee effusion, improved rom, though remains limited, of left knee neuro- AAOx3 Left knee pain and joint effusion 2/2 OA No infection identified, no crystals on fluid analysis -ortho rec for steroid injection and outpt fu -prn pain control pt/ot rec for snf/ecf and sw aware, pt in agreement Chronic anemia- appears at baseline 7-8s monitor as needed hx unprovoked pe- on ac, INR 1.9, bridge with lovenox and cont to monitor further diagnoses and plan as noted by resident <Vahid Jackson R - Last Filed: 04/03/18 16:20> Hospitalist Progress Note - Encounter Date of Encounter: 04/03/18 Time of Encounter: 07:50 - Subjective Interval History: She was seen and evaluated at the bedside. She reports no new complaints. Left knee pain persists although does continue to improve. She is still limited in her ability to ambulate. His nausea, vomiting, fevers, chills. Reports that she can stand with assistance. - Exam Vitals: Temp Pulse Resp BP Pulse Ox 97.9 F 63 16 115/61 98 04/03/18 11:19 04/03/18 11:19 04/03/18 11:19 04/03/18 11:19 04/03/18 11:19 Exam: General: Comfortable in seated upright in bed, no apparent distress HEENT: Pupils PERRLA, moist mucous membranes, anicteric sclera, atraumatic Cardio: Regular rate and rhythm, no murmurs, rubs, or gallops Respiratory: Clear to auscultation bilaterally, no increased work of respiration, no crackles, wheeze, rhonchi Abdomen: Soft, nontender, nondistended, bowel sounds present and normoactive Extremities: Mild swelling of the left knee is improved, no rashes, erythema, or lesions, decreased sensation of bilateral lower extremities symmetrically is unchanged Neuro: Alert and oriented to person, place, time, no focal deficits, cranial nerves intact bilaterally Psych: Good insight and judgment, mood and affect appropriate - Assessment and Plan (1) Knee effusion, left Current Visit: Yes Status: Acute Assessment and Plan: Left knee effusion and associated pain, started 1 week ago. Patient has been unable to ambulate since . Arthrocentesis was performed by orthopedic surgery on 03/31/2018, has been negative for crystals, cultures with negative growth to date Per orthopedic surgery most likely etiology is osteoarthritis. Intra-articular steroid injection performed by orthopedic surgery on 04/02/2018 and recommending outpatient follow-up. Patient was evaluated by PT/OT, with recommendation for discharge to SNF Plan: Continue PT/OT while inpatient Patient is aware of SNF recommendation and is agreeable, social work consult for placement Cultures with negative growth to date, continue to follow for final report (2) Diabetes Current Visit: Yes Status: Chronic Assessment and Plan: Well-controlled most recent hemoglobin A1c of 5.6 Plan: Holding home glipizide Continue Accu-Cheks before meals at bedtime and sliding scale insulin Will follow for adequate glycemic control and adjust as necessary (3) Anemia Current Visit: Yes Status: Chronic Assessment and Plan: Chronic anemia, likely multifactorial in nature secondary to CKD, iron defici ency, as well as anticoagulation for unprovoked PE. Hemoglobin stable Monitor for signs or symptoms of bleeding (4) History of pulmonary embolus (PE) Current Visit: Yes Status: Chronic Assessment and Plan: History of unprovoked PE, on warfarin at home Continue warfarin with Lovenox bridge until therapeutic Repeat INR in the a.m. (5) Depression Current Visit: Yes Status: Chronic Assessment and Plan: Continue home medication regimen (6) COPD (chronic obstructive pulmonary disease) Current Visit: Yes Status: Chronic Assessment and Plan: Per patient requires oxygen at baseline Continue oxygen supplementation as necessary to maintain saturation DuoNeb nebs every 6 hours when necessary (7) GERD (gastroesophageal reflux disease) Current Visit: Yes Status: Chronic Assessment and Plan: Continue home omeprazole (8) History of anxiety Current Visit: Yes Status: Chronic Assessment and Plan: Anxiety appears to be well-controlled at this time Continue on venlafaxine - Time Spent with Patient Total time spent is greater than 50% in coordination of care (as documented) at patient's floor/unit and/or counseling patient: Internal Medicine: Result - Labs CBC & Chem 7: 04/03/18 07:07 04/03/18 07:07 Labs: Short CBC 04/03/18 Range/Units 07:07 WBC 2.0 L (4.3-11.1) K/mcL Hgb 7.1 L (11.5-15.4) g/dL Hct 23.6 L (35.3-44.9) % Plt Count 127 L (140-400) K/mcL Neutrophils # 1.7 (1.6-8.9) K/mcL BMP 04/03/18 07:07 Sodium 138 Potassium 4.6 Chloride 99 Carbon Dioxide 32 H BUN 47 H Creatinine 1.51 H Glucose 231 H Calcium 9.2 - ABG Interpretation ABG results: PT/INR, D-dimer PT 21.4 Seconds (9.4-12.1) H 04/03/18 07:07 <Maryjane Koroma - Last Filed: 04/03/18 14:08> (2) Diabetes Qualifiers: Diabetes mellitus type: type 2 Diabetes mellitus half-way insulin use: without button spindler use Diabetes mellitus complication status: with kidney complications Diabetes mellitus complication detail: with chronic kidney disease Chronic kidney disease stage: unspecified stage Qualified Code(s): E11.22 - Type 2 diabetes mellitus with diabetic chronic kidney disease (3) Anemia Qualifiers: Anemia type: unspecified type Qualified Code(s): D64.9 - Anemia, unspecified (5) Depression Qualifiers: Depression Type: major depressive disorder Major depression recurrence: unspecified whether recurrent Active/Remission status: in full remission Qualified Code(s): 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 <Vahid Jackson - Last Filed: 04/03/18 16:20> (2) Diabetes Qualifiers: Diabetes mellitus type: type 2 Diabetes mellitus half-way insulin use: without button spindler use Diabetes mellitus complication status: with kidney complications Diabetes mellitus complication detail: with chronic kidney disease Chronic kidney disease stage: unspecified stage Qualified Code(s): E11.22 - Type 2 diabetes mellitus with diabetic chronic kidney disease (3) Anemia Qualifiers: Anemia type: unspecified type Qualified Code(s): D64.9 - Anemia, unspecified (5) Depression Qualifiers: Depression Type: major depressive disorder Major depression recurrence: unspecified whether recurrent Active/Remission status: in full remission Qualified Code(s): 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
[2018-04-03] MEDS ORDERED: *HR* Enoxaparin 120 MG/0.8 ML SYRINGE SQ ONE (15:58)
[2018-04-03] MEDS: *HR* Warfarin 5 MG TABLET PO SCH (17:53)
[2018-04-04 05:11] LABS: Prothrombin Time 22.9 Seconds (9.4-12.1)
[2018-04-04] MEDS: Gabapentin 400 MG CAPSULE PO SCH ×3 (07:32→20:43)
[2018-04-04] MEDS: Venlafaxine XR (24 HR) 150 MG CAP.ER.24H PO SCH (07:33)
[2018-04-04] MEDS: *HR* HYDROcodone/Acet 10/325 mg TABLET PO PRN ×2 (07:33→20:43)
[2018-04-04] MEDS: Insulin LISPRO 300 UNITS/3 ML VIAL SQ SCH ×2 (07:57→17:15)
--- NOTE | 2018-04-04 08:35 | Internal Med Progress Note ---
<Vahid Jackson R - Last Filed: 04/04/18 12:40> Hospitalist Progress Note - Encounter Date of Encounter: 04/04/18 Time of Encounter: 07:55 - Subjective Interval History: Patient was seen and evaluated at the bedside. She has no new complaints. Left knee pain is improved although prevents her from ambulating and dependently. Denies nausea, vomiting, fever, or chills. Denies pain or swelling of the lower extremities. - Exam Vitals: Temp Pulse Resp BP Pulse Ox 97.6 F 57 16 114/66 100 04/04/18 07:57 04/04/18 07:57 04/04/18 07:57 04/04/18 07:57 04/04/18 07:57 Exam: General: Comfortable in seated upright in bed, no apparent distress HEENT: Pupils PERRLA, moist mucous membranes, anicteric sclera, atraumatic Cardio: Regular rate and rhythm, no murmurs, rubs, or gallops Respiratory: Clear to auscultation bilaterally, no increased work of respiration, no crackles, wheeze, rhonchi Abdomen: Soft, nontender, nondistended, bowel sounds present and normoactive Extremities: Mild swelling of the left knee is improved, faint erythema of the left anterolateral zavala region, 1+ edema Neuro: Alert and oriented to person, place, time, no focal deficits, cranial nerves intact bilaterally Psych: Good insight and judgment, mood and affect appropriate - Assessment and Plan (1) Knee effusion, left Current Visit: Yes Status: Acute Assessment and Plan: Left knee effusion and associated pain, started 1 week ago. Patient has been u nable to ambulate since . Arthrocentesis was performed by orthopedic surgery on 03/31/2018, has been negative for crystals, cultures with negative growth to date Per orthopedic surgery most likely etiology at this time is osteoarthritis. Intra-articular steroid injection performed by orthopedic surgery on 04/02/2018 and recommending outpatient follow-up. Patient was evaluated by PT/OT, with recommendation for discharge to SNF Plan: Continue PT/OT while inpatient Patient is aware of SNF recommendation and is agreeable, social work consult for placement Blood and synovial fluid cultures with negative growth to date. (2) Diabetes Current Visit: Yes Status: Chronic Assessment and Plan: Well-controlled on home regimen with most recent hemoglobin A1c of 5.6 Plan: Holding home glipizide Continue Accu-Cheks before meals at bedtime and sliding scale insulin Blood sugars yesterday in the 200s, will advance to medium sliding scale (3) Anemia Current Visit: Yes Status: Chronic Assessment and Plan: Chronic anemia, likely multifactorial in nature secondary to CKD, iron deficiency, as well as anticoagulation for unprovoked PE. Hemoglobin stable and appears to be at her baseline Monitor for signs or symptoms of bleeding (4) History of pulmonary embolus (PE) Current Visit: Yes Status: Chronic Assessment and Plan: History of unprovoked PE, on warfarin at home Warfarin was initially held during this admission for arthrocentesis Patient was subtherapeutic on INR and warfarin restarted with Lovenox bridge INR now 2.0 Plan: Continue warfarin VTE prophylaxis (5) Depression Current Visit: Yes Status: Chronic Assessment and Plan: Appropriate mood and affect, patient currently denying depression symptoms Continue home medication regimen (6) COPD (chronic obstructive pulmonary disease) Current Visit: Yes Status: Chronic Assessment and Plan: Per patient requires oxygen at baseline Continue oxygen supplementation as necessary to maintain saturation DuoNeb nebs available when necessary every 6 H (7) GERD (gastroesophageal reflux disease) Current Visit: Yes Status: Chronic Assessment and Plan: Continue home omeprazole (8) History of anxiety Current Visit: Yes Status: Chronic Assessment and Plan: Anxiety remains well controlled throughout this stay Continue on venlafaxine - Time Spent with Patient Total time spent is greater than 50% in coordination of care (as documented) at patient's floor/unit and/or counseling patient: Internal Medicine: Result - Labs CBC & Chem 7: 04/03/18 07:07 04/03/18 07:07 - ABG Interpretation ABG results: PT/INR, D-dimer PT 22.9 Seconds (9.4-12.1) H 04/04/18 04:42 Consult Discharge Plan - Plan Referrals: Chintan Cooper MD [Primary Care Provider] - <Uriah Zamora - Last Filed: 04/04/18 16:53> Hospitalist Progress Note - Encounter Date of Encounter: 04/04/18 - Exam Vitals: Temp Pulse Resp BP Pulse Ox 97.8 F 60 16 101/53 98 04/04/18 16:44 04/04/18 16:44 04/04/18 16:44 04/04/18 16:44 04/04/18 16:44 - Assessment and Plan (1) Knee effusion, left Current Visit: Yes Status: Acute (2) Diabetes Current Visit: Yes Status: Chronic (3) Anemia Current Visit: Yes Status: Chronic (4) History of pulmonary embolus (PE) Current Visit: Yes Status: Chronic (5) Depression Current Visit: Yes Status: Chronic (6) COPD (chronic obstructive pulmonary disease) Current Visit: Yes Status: Chronic (7) GERD (gastroesophageal reflux disease) Current Visit: Yes Status: Chronic (8) History of anxiety Current Visit: Yes Status: Chronic - Time Spent with Patient Total time spent is greater than 50% in coordination of care (as documented) at patient's floor/unit and/or counseling patient: Internal Medicine: Result - Labs CBC & Chem 7: 04/03/18 07:07 04/03/18 07:07 - ABG Interpretation ABG results: PT/INR, D-dimer PT 22.9 Seconds (9.4-12.1) H 04/04/18 04:42 - Attending Attestation I examined this patient and my medical decision-making was reviewed with the Res ident Physician. I agree with the documented findings, disposition and treatment plan as described except to the extent set forth below. Awaiting PT/OT dispo planning, patient states knee effusion much better after injection and aspiration <Vahid Jackson R - Last Filed: 04/04/18 12:40> (2) Diabetes Qualifiers: Diabetes mellitus type: type 2 Diabetes mellitus senior living insulin use: without superintendent container terminal use Diabetes mellitus complication status: with kidney complications Diabetes mellitus complication detail: with chronic kidney disease Chronic kidney disease stage: unspecified stage Qualified Code(s): E11.22 - Type 2 diabetes mellitus with diabetic chronic kidney disease (3) Anemia Qualifiers: Anemia type: unspecified type Qualified Code(s): D64.9 - Anemia, unspecified (5) Depression Qualifiers: Depression Type: major depressive disorder Major depression recurrence: unspecified whether recurrent Active/Remission status: in full remission Qualified Code(s): 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 <Uriah Zamora - Last Filed: 04/04/18 16:53> (2) Diabetes Qualifiers: Diabetes mellitus type: type 2 Diabetes mellitus senior living insulin use: without senior living use Diabetes mellitus complication status: with kidney complications Diabetes mellitus complication detail: with chronic kidney disease Chronic kidney disease stage: unspecified stage Qualified Code(s): E11.22 - Type 2 diabetes mellitus with diabetic chronic kidney disease (3) Anemia Qualifiers: Anemia type: unspecified type Qualified Code(s): D64.9 - Anemia, unspecified (5) Depression Qualifiers: Depression Type: major depressive disorder Major depression recurrence: unspecified whether recurrent Active/Remission status: in full remission Qualified Code(s): 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
[2018-04-04] MEDS ORDERED: Torsemide 20 MG TABLET PO PRN (11:24)
[2018-04-04] MEDS: *HR* Warfarin 5 MG TABLET PO SCH (17:15)
[2018-04-05] MEDS: Insulin LISPRO 300 UNITS/3 ML VIAL SQ SCH ×4 (00:35→11:40)
[2018-04-05] MEDS: *HR* HYDROcodone/Acet 10/325 mg TABLET PO PRN ×2 (06:01→13:35)
[2018-04-05 06:51] LABS: INR 2.3; Prothrombin Time 25.4 Seconds (9.4-12.1)
[2018-04-05] MEDS: Gabapentin 400 MG CAPSULE PO SCH ×2 (08:06→13:35)
[2018-04-05] MEDS: Venlafaxine XR (24 HR) 150 MG CAP.ER.24H PO SCH (08:06)
[2018-04-05 11:00] VITALS: BP 109/62
[2018-04-05] MEDS ORDERED: Iron Sucrose Complex 400 MG in 0.9 % Sodium Chloride 250 ML IVPB ONE (11:13)
--- NOTE | 2018-04-05 11:18 | Discharge Summary ---
<ManuelVahid R - Last Filed: 04/05/18 12:28> - NOTES TO OUTPATIENT PROVIDER Notes to Outpatient Provider: Follow up with Dr. Mcnulty, further evaluation and management of Left knee pain/effusion. Follow up Dr. Estrella of hematology, multifactorial anemia, no active bleeding, hemoglobin stable Orders not resulted at time of discharge: Pending orders 03/31/18 15:36 Culture,Blood [BC] Stat 03/31/18 18:50 Culture,Anaerobic [RM] Routine 03/31/18 19:00 Cytology [PTH] Stat Date of Encounter: 04/05/18 Time of Encounter: 08:15 - Discharge Diagnosis (1) Knee effusion, left Priority: Primary Status: Acute (2) Diabetes Priority: Secondary Status: Chronic Qualifiers: Diabetes mellitus type: type 2 Diabetes mellitus assisted insulin use: without assisted use Diabetes mellitus complication status: with kidney complications Diabetes mellitus complication detail: with chronic kidney disease Chronic kidney disease stage: unspecified stage Qualified Code(s): E11.22 - Type 2 diabetes mellitus with diabetic chronic kidney disease (3) Anemia Priority: Secondary Status: Chronic Qualifiers: Anemia type: unspecified type Qualified Code(s): D64.9 - Anemia, unspecified (4) History of pulmonary embolus (PE) Priority: Secondary Status: Chronic (5) Depression Priority: Secondary Status: Chronic Qualifiers: Depression Type: major depressive disorder Major depression recurrence: unspecified whether recurrent Active/Remission status: in full remission Qualified Code(s): 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, single episode, in full remission (6) COPD (chronic obstructive pulmonary disease) Priority: Secondary Status: Chronic Qualifiers: COPD type: unspecified COPD Qualified Code(s): J44.9 - Chronic obstructive pulmonary disease, unspecified (7) GERD (gastroesophageal reflux disease) Priority: Secondary Status: Chronic Qualifiers: Esophagitis presence: esophagitis presence not specified Qualified Code(s): K21.9 - Gastro-esophageal reflux disease without esophagitis (8) History of anxiety Priority: Secondary Status: Chronic Hospital course: Ms. Ames is a 67 year old female with history of CAD, diabetes, hypertension, depression, unprovoked PE on anticoagulation with Coumadin, COPD with baseline oxygen requirement, as well as multifactorial chronic anemia. Patient presented on 03/31/2018 for evaluation of left knee effusion and pain. She was transferred from [facility] emergency department. Patient did report one week of left knee progressive pain, she became unable to ambulate. No evidence of infection, no fever, chills, nausea, vomiting, no leukocytosis. Uric acid was elevated at 13. Left knee radiographs were negative for acute abnormality. Etiology was believed to be gouty arthritis and patient was given dose of colchicine. Orthopedic surgery was consultation and performed arthrocentesis. Evaluation of synovial fluid did not reveal bacteria, cultures were negative, no crystals were visible. Orthopedic surgery the believed etiology most most likely osteoarthritis. Patient was given intra-articular injection of steroid. Since that time she reports improved symptoms. Left knee effusion has reduced in size. She is able to stand, however remains limited in her ability to ambulate without assistance. Physical therapy has evaluated the patient and recommends ongoing physical therapy with [facility]. Patient has remained anemic throughout this visit, hemoglobin remaining stable in the mid to low sevens. No evidence of ongoing bleeding. Patient sees Dr. Estrella, packing room worker, for ongoing anemia management. At last visit with Dr. Estrella her hemoglobin was 7.4 which is consistent with her inpatient values throughout this admission. Vital signs are within normal limits, afebrile, laboratory values are stable. Patient is ready for discharge to [facility] upon social work placement. She will be discharged with follow-up orthopedic surgery for further management of osteoarthritis and follow-up hematology and nephrology for further management of chronic anemia. Prescriptions for hydrocodone and iron supplementation are printed and on the patient's chart. Discharge discussed with: patient, social work - Time Spent with Patient Total time spent providing and/or coordinating discharge services: - Discharge Medications Prescriptions: Ferrous Sulfate 325 mg PO DAILY 30 Days #30 tablet HYDROcodone/Acet 10/325 mg [[place] 10-325 mg] 1 tab PO BID PRN 1 Days #2 tab PRN Reason: Pain Home Medications: Citalopram Hydrobromide [Celexa] 40 mg PO DAILY 01/04/17 [History] Gabapentin [Neurontin] 800 mg PO TID 01/04/17 [History] Indapamide [Lozol] 2.5 mg PO DAILY 01/04/17 [History] Meclizine HCl [Verticalm] 25 mg PO DAILY PRN 01/04/17 [History] Omeprazole [PriLOSEC] 40 mg PO DAILY 01/04/17 [History] Tizanidine HCl [Zanaflex] 4 mg PO TID PRN 01/04/17 [History] Venlafaxine XR (24 HR) [Effexor Xr] 150 mg PO DAILY 01/04/17 [History] Warfarin [Coumadin] 5 mg PO 1800 01/04/17 [History] HYDROcodone/Acet 10/325 mg [[place] 10-325 mg] 1 tab PO BID PRN 03/16/17 [History] Fluticasone Propionate Nasal [Flonase] 1 spray NS DAILY 03/31/18 [History] Metoprolol [Lopressor] 25 mg PO BID 03/31/18 [History] Nitroglycerin [Nitrostat] 0.4 mg SL AD PRN 03/31/18 [History] Potassium Chloride 20 meq PO BID 03/31/18 [History] Torsemide [Demadex] 20 mg PO BID PRN 03/31/18 [History] glipiZIDE [Glucotrol] 5 mg PO BID 03/31/18 [History] Ferrous Sulfate 325 mg PO DAILY 30 Days #30 tablet 04/05/18 [Rx] HYDROcodone/Acet 10/325 mg [[place] 10-325 mg] 1 tab PO BID PRN 1 Days #2 tab 04/05/18 [Rx] Allergies/Adverse Reactions: Allergy/AdvReac Type Severity Reaction Status Date / Time Penicillins Allergy Rash Verified 03/31/18 21:04 pregabalin [From Lyrica] Allergy Rash Verified 03/31/18 21:04 Date of admission: 04/02/18 13:29 Primary care physician: Chintan Cooper MD Consults: 03/31/18 15:02 Consult to Physician [CONS] Routine Consulting Provider: Surya Mcnulty Reason for Consult: Left knee effusion Call Completed: Yes 04/01/18 11:25 Consult to Occupational Therapy [CONS] Routine Comment: Evaluate, develop and implement POC Reason for Consult: Patient with left knee pain, currently working up for septic knee vs gout, please establish baseline/POC Does patient have active BEDREST order?: No Is patient medically & hemodynamically stable?: Yes Patient assessed for mobility or mobilized this visit?: No Consult to Physical Therapy [CONS] Routine Comment: Evaluate, develop and implement POC Reason for Consult: Patient with left knee pain, currently working up for septic knee vs gout, please establish baseline/POC Does patient have active BEDREST order?: No Is patient medically & hemodynamically stable?: Yes Patient assessed for mobility or mobilized this visit?: No 04/02/18 18:55 Consult to Spray Technician [CONS] Routine Reason for SW Consult: DC planning, possible rehab Discharging clinician: Vahid Jackson Anticipated date of discharge: 04/05/18 - Constitutional Vitals: Temp Pulse Resp BP Pulse Ox 98.5 F 56 16 109/62 97 04/05/18 10:51 04/05/18 10:51 04/05/18 10:51 04/05/18 10:51 04/05/18 10:51 Exam: General: Comfortable in seated upright in bed, no apparent distress HEENT: Pupils PERRLA, moist mucous membranes, anicteric sclera, atraumatic Cardio: Regular rate and rhythm, no murmurs, rubs, or gallops Respiratory: Clear to auscultation bilaterally, no increased work of respiration, no crackles, wheeze, rhonchi Abdomen: Soft, nontender, nondistended, bowel sounds present and normoactive Extremities: Mild swelling of the left knee is improved, faint erythema of the left anterolateral zavala region resolved, 1+ edema Neuro: Alert and oriented to person, place, time, no focal deficits, cranial nerves intact bilaterally Psych: Good insight and judgment, mood and affect appropriate - Patient Status Disposition: Transfer SNF Condition: Fair Functional capacity at discharge: uses cane/walker Overall status at discharge: patient is progressing back to baseline - Discharge Instructions Follow Up With: Surya Mcnulty DO [Non-Partnered Physician] - 04/17/18 9:00 am Navjot Estrella MD [Partnered Physician] - 04/07/18 11:00 am Chintan Cooper MD [Primary Care Provider] - - Diet and Activity Activity: as per physical therapy Diet: diabetic diet <Uriah Zamora - Last Filed: 04/05/18 15:04> Orders not resulted at time of discharge: Pending orders 03/31/18 15:36 Culture,Blood [BC] Stat 03/31/18 18:50 Culture,Anaerobic [RM] Routine Date of Encounter: 04/05/18 - Discharge Diagnosis (1) Knee effusion, left Status: Acute (2) Diabetes Status: Chronic Qualifiers: Diabetes mellitus type: type 2 Diabetes mellitus saw cleaner insulin use: without saw cleaner use Diabetes mellitus complication status: with kidney complications Diabetes mellitus complication detail: with chronic kidney disease Chronic kidney disease stage: unspecified stage Qualified Code(s): E11.22 - Type 2 diabetes mellitus with diabetic chronic kidney disease (3) Anemia Status: Chronic Qualifiers: Anemia type: unspecified type Qualified Code(s): D64.9 - Anemia, unspecifi ed (4) History of pulmonary embolus (PE) Status: Chronic (5) Depression Status: Chronic Qualifiers: Depression Type: major depressive disorder Major depression recurrence: unspecified whether recurrent Active/Remission status: in full remission Qualified Code(s): 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, single episode, in full remission (6) COPD (chronic obstructive pulmonary disease) Status: Chronic Qualifiers: COPD type: unspecified COPD Qualified Code(s): J44.9 - Chronic obstructive pulmonary disease, unspecified (7) GERD (gastroesophageal reflux disease) Status: Chronic Qualifiers: Esophagitis presence: esophagitis presence not specified Qualified Code(s): K21.9 - Gastro-esophageal reflux disease without esophagitis (8) History of anxiety Status: Chronic Hospital course: Ms. Ames is a 67 year old female - Time Spent with Patient Total time spent providing and/or coordinating discharge services: Date of admission: 04/02/18 13:29 Primary care physician: Chintan Cooper MD Consults: 03/31/18 15:02 Consult to Physician [CONS] Routine Consulting Provider: Surya Mcnulty Reason for Consult: Left knee effusion Call Completed: Yes 04/01/18 11:25 Consult to Occupational Therapy [CONS] Routine Comment: Evaluate, develop and implement POC Reason for Consult: Patient with left knee pain, currently working up for septic knee vs gout, please establish baseline/POC Does patient have active BEDREST order?: No Is patient medically & hemodynamically stable?: Yes Patient assessed for mobility or mobilized this visit?: No Consult to Physical Therapy [CONS] Routine Comment: Evaluate, develop and implement POC Reason for Consult: Patient with left knee pain, currently working up for septic knee vs gout, please establish baseline/POC Does patient have active BEDREST order?: No Is patient medically & hemodynamically stable?: Yes Patient assessed for mobility or mobilized this visit?: No 04/02/18 18:55 Consult to Spray Technician [CONS] Routine Reason for SW Consult: DC planning, possible rehab - Constitutional Vitals: Temp Pulse Resp BP Pulse Ox 98.5 F 56 16 109/62 97 04/05/18 10:51 04/05/18 10:51 04/05/18 10:51 04/05/18 10:51 04/05/18 10:51 - Attending Attestation I examined this patient and my medical decision-making was reviewed with the Resident Physician. I agree with the documented findings, disposition and treatment plan as described except to the extent set forth below.
--- NOTE | 2018-04-05 11:38 | Physician Discharge Referral ---
<Vahid Jackson R - Last Filed: 04/05/18 12:36> [facility] Referral Info Provider in Charge after Transfer: PCP Institutional Level of Care: Skilled - Diagnosis (1) Knee effusion, left Priority: Primary Status: Acute (2) Diabetes Priority: Primary Status: Chronic (3) Anemia Priority: Primary Status: Chronic (4) History of pulmonary embolus (PE) Priority: Primary Status: Chronic (5) Depression Priority: Secondary Status: Chronic (6) COPD (chronic obstructive pulmonary disease) Priority: Secondary Status: Chronic (7) GERD (gastroesophageal reflux disease) Priority: Secondary Status: Chronic (8) History of anxiety Priority: Secondary Status: Chronic - Transfer Medications Prescriptions: Ferrous Sulfate 325 mg PO DAILY 30 Days #30 tablet HYDROcodone/Acet 10/325 mg [[place] 10-325 mg] 1 tab PO BID PRN 1 Days #2 tab PRN Reason: Pain Home Medications: Citalopram Hydrobromide [Celexa] 40 mg PO DAILY 01/04/17 [History] Gabapentin [Neurontin] 800 mg PO TID 01/04/17 [History] Indapamide [Lozol] 2.5 mg PO DAILY 01/04/17 [History] Meclizine HCl [Verticalm] 25 mg PO DAILY PRN 01/04/17 [History] Omeprazole [PriLOSEC] 40 mg PO DAILY 01/04/17 [History] Tizanidine HCl [Zanaflex] 4 mg PO TID PRN 01/04/17 [History] Venlafaxine XR (24 HR) [Effexor Xr] 150 mg PO DAILY 01/04/17 [History] Warfarin [Coumadin] 5 mg PO 1800 01/04/17 [History] HYDROcodone/Acet 10/325 mg [[place] 10-325 mg] 1 tab PO BID PRN 03/16/17 [History] Fluticasone Propionate Nasal [Flonase] 1 spray NS DAILY 03/31/18 [History] Metoprolol [Lopressor] 25 mg PO BID 03/31/18 [History] Nitroglycerin [Nitrostat] 0.4 mg SL AD PRN 03/31/18 [History] Potassium Chloride 20 meq PO BID 03/31/18 [History] Torsemide [Demadex] 20 mg PO BID PRN 03/31/18 [History] glipiZIDE [Glucotrol] 5 mg PO BID 03/31/18 [History] Ferrous Sulfate 325 mg PO DAILY 30 Days #30 tablet 04/05/18 [Rx] HYDROcodone/Acet 10/325 mg [[place] 10-325 mg] 1 tab PO BID PRN 1 Days #2 tab 04/05/18 [Rx] Allergies/Adverse Reactions: Allergy/AdvReac Type Severity Reaction Status Date / Time Penicillins Allergy Rash Verified 03/31/18 21:04 pregabalin [From Lyrica] Allergy Rash Verified 03/31/18 21:04 - Respiratory Orders Oxygen / L per min (2L/Min) Smoking Cessation: Smoking cessation has been advised. For more information, call the [employer] Quit Line at 1-476-KBCV-NOW. - Advance Directives Code Status: Full Code - Mobility Orders Other - Rehabiliation Orders Rehab Orders: Evaluation for Physical Therapy, Evaluation for Occupational Therapy - Diet Orders Renal, Cardiac CERTIFICATION: I certify that the transfer of the above named patient to an Extended Care Facility is necessary for the continuing treatment of the diagnosis listed. The above information is true and accurate reflection of patient's current condition. Confidential - Redisclosure prohibited without a patient's written consent. <Uriah Zamora - Last Filed: 04/05/18 13:13> - Diagnosis (1) Knee effusion, left Status: Acute (2) Diabetes Status: Chronic (3) Anemia Status: Chronic (4) History of pulmonary embolus (PE) Status: Chronic (5) Depression Status: Chronic (6) COPD (chronic obstructive pulmonary disease) Status: Chronic (7) GERD (gastroesophageal reflux disease) Status: Chronic (8) History of anxiety Status: Chronic - Respiratory Orders Smoking Cessation: Smoking cessation has been advised. For more information, call the [employer] Quit Line at 4-850-YMIF-NOW. CERTIFICATION: I certify that the transfer of the above named patient to an Extended Care Facility is necessary for the continuing treatment of the diagnosis listed. The above information is true and accurate reflection of patient's current condition. Confidential - Redisclosure prohibited without a patient's written consent. GET CBC in TWO DAYS
[2018-04-05 12:21] LABS: Hemoglobin 7.7 g/dL (11.5-15.4)
== END 2018-04-05 14:54 | DRG 554 ==
LOC: 3ANU → SUATTDRO 04-02 13:29
PROVIDERS: ADMIT Internal Medicine; ATTEND Student in an Organized Health Care Education/Training Program